=== PATIENT | male | born 1940 | race Caucasian/White ===

== ENCOUNTER 2022-04-25 04:10 | Day surgery (SDC) | payer OTHER ==
[2022-04-20 09:56] VITALS: BMI 25.4
[~2022-04-25 04:10] MED LIST: BUPIVACAINE HCL/PF 0.5% (5MG/ML) 10 ML VIAL IJ ONE; LIDOCAINE HCL 1%, 10 MG/ML (20ML VIAL) NR ONE
[2022-04-25] MEDS ORDERED: LIDOCAINE HCL 1%, 10 MG/ML (20ML VIAL) ONE (07:16)
[2022-04-25] MEDS ORDERED: BUPIVACAINE HCL/PF 0.5% (5MG/ML) 10 ML VIAL ONE (07:16)
[2022-04-25] MEDS ORDERED: SUCCINYLCHOLINE CHLORIDE 200 MG/10 ML SYRINGE ONE (07:36)
[2022-04-25] MEDS ORDERED: PROPOFOL 20 ML ONE (07:36)
[2022-04-25] MEDS ORDERED: MIDAZOLAM HCL 2 MG/2 ML SINGLE DOSE VIAL ONE (07:36)
[2022-04-25] MEDS ORDERED: ceFAZolin SODIUM 1 GM VIAL IVPB ONE (08:09)
[2022-04-25] MEDS ORDERED: ceFAZolin SODIUM 1 GM VIAL ONE (08:10)
[2022-04-25] MEDS ORDERED: LIDOCAINE HCL 1%, 10 MG/ML (20ML VIAL) NR ONE (08:24)
[2022-04-25] MEDS ORDERED: BUPIVACAINE HCL/PF 0.5% (5MG/ML) 10 ML VIAL IJ ONE (08:24)
[2022-04-25 09:05] VITALS: RESP 20; TEMP 97.1
[2022-04-25 10:43] VITALS: BP 122/63; PULSE 57
== END 2022-04-25 11:10 | disposition home or self-care (01) ==
LOC: JASU-SURG 04:10
PROVIDERS: ATTEND Orthopaedic Surgery
PROC: 01N50ZZ Release Median Nerve, Open Approach (ICD-10-PCS; principal; 2022-04-25 08:00)
DX: G56.02 Carpal tunnel syndrome, left upper limb (principal); M65.9 Synovitis and tenosynovitis, unspecified
CPT/HCPCS: 88304-TC

== ENCOUNTER 2022-06-20 05:25 | Day surgery (SDC) | payer OTHER ==
[2022-06-18 12:54] VITALS: BMI 24.7
[2022-06-20] MEDS ORDERED: BUPIVACAINE HCL/PF 0.5% (5MG/ML) 10 ML VIAL ONE (09:11)
[2022-06-20] MEDS ORDERED: LIDOCAINE HCL 1%, 10 MG/ML (10ML VIAL) MDV ONE (09:11)
[2022-06-20] MEDS ORDERED: ceFAZolin SODIUM 1 GM VIAL ONE (09:30)
[2022-06-20] MEDS ORDERED: PROPOFOL 20 ML ONE (09:31)
[2022-06-20] MEDS ORDERED: MIDAZOLAM HCL 2 MG/2 ML SINGLE DOSE VIAL ONE ×2 (09:31→09:42)
[2022-06-20] MEDS ORDERED: ceFAZolin SODIUM 1 GM VIAL IVPB ONE (09:37)
[2022-06-20] MEDS ORDERED: LIDOCAINE HCL 1%, 10 MG/ML (20ML VIAL) NR ONE ×2 (09:41)
[2022-06-20] MEDS ORDERED: BUPIVACAINE HCL/PF 0.5% (5MG/ML) 10 ML VIAL IJ ONE ×2 (09:41)
[2022-06-20 10:34] VITALS: PULSE 61
[2022-06-20 11:47] VITALS: BP 106/43; RESP 18; TEMP 98.7
== END 2022-06-20 11:55 | disposition home or self-care (01) ==
LOC: JASU-SURG 05:25
PROVIDERS: ATTEND Orthopaedic Surgery
PROC: 0LB50ZZ Excision of Right Lower Arm and Wrist Tendon, Open Approach (ICD-10-PCS; 2022-06-20)
PROC: 01N50ZZ Release Median Nerve, Open Approach (ICD-10-PCS; principal; 2022-06-20 09:00)
DX: G56.01 Carpal tunnel syndrome, right upper limb (principal); M65.831 Other synovitis and tenosynovitis, right forearm
CPT/HCPCS: 88304-TC